=== PATIENT | female | born 2005 | race Two or more races ===

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

== ENCOUNTER → 2023-12-17 09:30 | Outpatient (BNVA) | payer OTHER, SELFPAY | PROVIDERS: Visit Provider Physician Assistant | DX: O9A.211 Injury, poisoning and certain other consequences of external causes complicating pregnancy, first trimester (principal); S60.371A Other superficial bite of right thumb, initial encounter; W50.3XXA Accidental bite by another person, initial encounter; Z3A.01 Less than 8 weeks gestation of pregnancy | CPT/HCPCS: 29130; 99203 ==

== ENCOUNTER → 2023-12-23 10:23 | Outpatient (BNVA) | payer OTHER, SELFPAY | PROVIDERS: Visit Provider Physician Assistant | DX: O9A.211 Injury, poisoning and certain other consequences of external causes complicating pregnancy, first trimester (principal); S60.371A Other superficial bite of right thumb, initial encounter; W50.3XXA Accidental bite by another person, initial encounter; Z3A.01 Less than 8 weeks gestation of pregnancy | CPT/HCPCS: 99213 ==

== ENCOUNTER 2024-01-03 08:30 | Outpatient (RCR) | payer OTHER, SELFPAY ==
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
--- NOTE | 2024-01-03 09:54 | MHC.OT.DC ---
[address] [phone] F: [phone] Occupational Therapy Discharge Note Patient Name: Pantera Engel Provider: Bety Rojo PA-C Diagnosis: Right thumb sprain Date of Evaluation: 12/24/23 Date of Discharge: 01/03/24 Treatments to Date: 2 Discharge Status: Achieved Goals Independent with HEP Discharge Summary: Pantera presents to OT s/p right thumb sprain at work. She is doing well, currently pain free and most goals met. She has good follow through w/ HEP and low discomfort only with occasional use. She is Ind w/ HEP and self management techniques, she will also have two weeks of school break before RTW in January. No further OT needed at this time. Electronically Signed By: BRIGID Echevarria/Svetlana CHT Reviewed/agree with student documentation: N/A Therapist: Please Sign and return to therapist, thank you for your referral.
== END 2024-01-03 09:55 | disposition home or self-care (01) ==
LOC: HO.OT 08:30
PROVIDERS: PCP Nurse Practitioner Family; Visit Provider Physician Assistant
DX: S63.601D Unspecified sprain of right thumb, subsequent encounter (principal)
CPT/HCPCS: 97110; 97140; 97165; 97535

== ENCOUNTER → 2024-01-06 11:38 | Outpatient (BNVA) | payer OTHER, SELFPAY | PROVIDERS: PCP Nurse Practitioner Family; Visit Provider Registered Nurse | DX: S61.051D Open bite of right thumb without damage to nail, subsequent encounter (principal); S63.601D Unspecified sprain of right thumb, subsequent encounter; W50.3XXD Accidental bite by another person, subsequent encounter | CPT/HCPCS: 99213 ==